=== PATIENT | male | born 1990 | race Caucasian/White ===

== ENCOUNTER 2017-10-28 14:20 | Emergency (ER) | payer OTHER ==
[~2017-10-28] VITALS: Ht 185.4 cm; Wt 93.0 kg
[~2017-10-28 14:20] MED LIST: KEFLEX500 MG PO; NOHOMEMEDICATIONS
[2017-10-28] MEDS ORDERED: NORCO 5-325 TA1 EACH PO (17:20)
[2017-10-28] MEDS ORDERED: BACTRIM DS TAB1 EACH PO (17:20)
[2017-10-28 18:20] VITALS: BP 114/74
--- NOTE | 2017-11-17 06:44 | H ---
[address] [address] HISTORY AND PHYSICAL Name: ION FABIAN Room: [facility]#: [id number] Admission: 10/28/17 Attend Phys: Discharge: 10/28/17 Date of : 89 Report #: [id number] THIS REPORT FOR: //name// CC: DONNY physician/PCP Brittany Jailene DICTATED BY: David Ward DO DATE OF SERVICE: 10/28/2017 CHIEF COMPLAINT: Right hand injury. HISTORY OF PRESENT ILLNESS: This 27-year-old male presents to the Emergency Room today with lacerations to his index, long and ring finger of his right hand. He was seen in the Emergency Room and Orthopedics was consulted as the patient had a partial amputation to the distal phalanx of his right long finger. He has a saw laceration to his index and ring finger with a full amputation through the mid portion of his distal phalanx. PAST MEDICAL HISTORY: Significant for tumor removal of the spine. CURRENT MEDICATIONS: None. ALLERGIES: SHELLFISH. SOCIAL HISTORY: Admits to tobacco and alcohol use as well as marijuana use. REVIEW OF SYSTEMS: CONSTITUTIONAL: Denies fevers, chills. HEENT: Denies congestion. RESPIRATORY: Denies shortness of breath. CARDIOVASCULAR: Denies chest pain or palpitations. GASTROINTESTINAL: Denies nausea, vomiting. MUSCULOSKELETAL: Admits to hand pain, denies back pain and muscle pain. SKIN: Admits to lacerations, rashes. NEUROLOGIC: Admits to some numbness and tingling. PHYSICAL EXAMINATION: VITAL SIGNS: Blood pressure 122/86, pulse 69, respiratory rate 16, O2 sat 96. GENERAL: Oriented, mild anxiety. HEENT: Head is atraumatic, normocephalic. Eyes: Pupils equal, round, reactive to light. Extraocular muscles intact. Nose: Nasal septum midline. NECK: No JVD, no lymphadenopathy. HEART: Good equal pulses bilateral upper extremities. LUNGS: Normal respiratory effort, no accessory muscles use. ABDOMEN: Soft, nontender, [place] [address] HISTORY AND PHYSICAL Name: INO FABIAN Room: [facility]#: [id number] Admission: 10/28/17 Attend Phys: Discharge: 10/28/17 Date of : 89 Report #: [id number] NEUROLOGIC: Cranial nerves 2-12 grossly intact. No focal deficits. MUSCULOSKELETAL: Right hand has lacerations to the right index and middle finger with an amputation obliquely oriented from the dorsum to palmar surface of his right long finger with exposed bone. DIAGNOSTIC DATA: X-rays, two views of the right hand demonstrate a partial amputation of the distal phalanx. IMPRESSION: 1. 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 2. Lacerations to index and long finger. RECOMMENDATIONS: I had a thorough discussion with the patient about treatment options. I recommended that he have a completion of amputation back to the distal end of the phalangeal joint with primary closure. 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 After a long discussion with the patient about the risk of continued infection and wound complications, I had the patient to understand that medical treatment was necessary for his health. This was in conjunction with the ER physician. The following procedure was performed. The fingertip was soaked in a saline Hibiclens soak prior to my arrival. A chlorhexidine scrub was performed on the right hand and alcohol prep to the base of the middle finger. A 10 mL of 1% lidocaine was used for a digital block. His finger was allowed to be anesthetized. Next, a rongeur was used to remove the remaining distal phalanx back to the DIP joint. Hemostasis was obtained with direct pressure. The nail plate as well as the nail matrix was sharply removed with a 15 blade scalpel. I was able to obtain adequate closure over the distal end of the middle phalanx. The wound was thoroughly irrigated prior to closure and the wound was cleansed with 2 liters of saline as well as the chlorhexidine scrub. The wound was closed with 3-0 nylon in a simple interrupted fashion. The wounds were dressed with Xeroform, Cecy wrap, Kerlix and Michele bandage. The patient was instructed to be nonweightbearing, no use of the right upper extremity and instructed to follow up in 7-10 days. The patient was given 2 grams Ancef while in the Emergency Room. He was discharged home with Bactrim 1 p.o. b.i.d. for 7 days and instructed to keep his dressings on until followup. <ELECTRONICALLY SIGNED> By: Roberto Carlos Iyer DO 11/17/17 0644 50Dimas Hurst DO /nt
== END 2017-10-28 18:21 | disposition home or self-care (01) ==
LOC: M.ERS 14:20
DX: S68.112A Complete traumatic metacarpophalangeal amputation of right middle finger, initial encounter (principal); F17.200 Nicotine dependence, unspecified, uncomplicated; Z91.013 Allergy to seafood; W26.8XXA Contact with other sharp object(s), not elsewhere classified, initial encounter; Y93.89 Activity, other specified; Y92.89 Other specified places as the place of occurrence of the external cause; Y99.8 Other external cause status